=== PATIENT | female | born 1955 | race Caucasian/White ===

== ENCOUNTER 2019-03-13 13:51 | Emergency (ER) | payer MEDICARE ==
[2014-05-28 09:57] VITALS: Wt 104.3 kg
[~2019-03-13 13:51] MED LIST: ALBU8.5H IH; AMOX-362 PO; AZIT-18 PO; AZIT-9 PO; BENZ200C15 PO; CITA-128 PO; CLIN-60 PO; FEXO-20 PO; HYDR115S3 PO; MULT-1379 PO; PRE20 PO; PRED20TA6 PO; VENL75CA4 PO; VENL75TA12 PO; [UNRECOGNIZED DRUG - CODE] PO
--- NOTE | 2019-03-13 13:57 | ER Report ---
History and Physical Time Seen By MD: 13:57 HPI/ROS CHIEF COMPLAINT: Burning with urination HISTORY OF PRESENT ILLNESS: Patient is a 63-year-old female here with complaints of burning with urination, increased frequency, right-sided flank pain with CVA tenderness. Patient is concerned that she has pyelonephritis. Patient is tolerating oral intake without issues, is afebrile, hemodynamically stable at time of evaluation. Denies hematuria, melena. REVIEW OF SYSTEMS: Constitutional: No fever, no chills. Eyes: No discharge. ENT: No sore throat. Cardiovascular: No chest pain, no palpitations. Respiratory: No cough, no shortness of breath. Gastrointestinal: + Right sided abdominal pain, no vomiting.+ nausea Genitourinary: No hematuria.+ Burning with urination, increased frequency Musculoskeletal: No back pain. Skin: No rashes. Neurological: No headache. Allergies: Coded Allergies: clindamycin (Verified Allergy, Intermediate, SWELLING, 03/13/19) aripiprazole (Verified Adverse Reaction, Intermediate, tongue swelled, 03/13/19) Home Meds Active Scripts Ciprofloxacin Hcl 500 Mg Tab (CIPRO 500 MG TAB) 500 Mg Tablet, 500 MG PO BID for 7 Days, #14 TAB Prov:HARPREET SANTOS S DO 03/13/19 Albuterol Sulfate 90 Mcg/Act (PROAIR HFA 90 MCG/ACT) 8.5 Gm Hfa.aer.ad, 1-2 PUFF IH 3-4XD, #1 INHALER 0 Refills Prov:RAPHAEL ARELLANO [employer] 09/30/18 Reported Medications Lamotrigine (LAMICTAL) 25 Mg Tablet, 25 MG PO 03/13/19 Multivits,Th W-Fe,Other Min (THERA-M) 1 Each Tablet, 1 EACH PO 05/30/14 Citalopram Hydrobromide (Citalopram Hbr) 20 Mg Tablet, 40 MG PO DAILY 12/19/12 Discontinued Reported Medications Venlafaxine Hcl (VENLAFAXINE HCL ER) 75 Mg Cap.er.24h, 75 MG PO QDAY 05/30/14 Fexofenadine Hcl (FEXOFENADINE HCL) 60 Mg Tablet, 60 MG PO DAILY 05/30/14 Discontinued Scripts Benzonatate (BENZONATATE) 200 Mg Capsule, 200 MG PO TID PRN for COUGH, #15 CAP Prov:RAPHAEL ARELLANO [facility] 09/30/18 Azithromycin 250 Mg Tab (AZITHROMYCIN 250 MG TAB) 250 Mg Tablet, 1 TAB PO QDAY, #6 TAB Take 2 tabs today and then 1 tab a day until gone. Prov:RAPHAEL ARELLANO [facility] 09/30/18 Prednisone (PREDNISONE) 20 Mg Tablet, 20 MG PO BID, #10 TAB Prov:RAPHAEL ARELLANO [facility] 09/30/18 Hx Smoking: Yes Smoking Status: Never Smoker Exposure to Second Hand Smoke?: No Hx Substance Use Disorder: No Hx Alcohol Use: Yes Constitutional Vital Sign - Last 24 Hours 03/13/19 14:01 Temp 98.0 Pulse 77 Resp 16 B/P (MAP) 125/88 Pulse Ox 94 O2 Delivery Room Air Physical Exam General Appearance: The patient is alert, has no immediate need for airway protection and no signs of toxicity. Uncomfortable appearing Eyes: Pupils equal and round no pallor or injection. ENT, Mouth: Mucous membranes are moist. Respiratory: There are no retractions, lungs are clear to auscultation. Cardiovascular: Regular rate and rhythm. Gastrointestinal: Tenderness on palpation of the right inguinal region, CVA tenderness on the right side Neurological: No focal neurological findings Skin: Warm and dry, no rashes. Musculoskeletal: Neck is supple non tender. Extremities are nontender, nonswollen and have full range of motion. DIFFERENTIAL DIAGNOSIS: After history and physical exam differential diagnosis was considered for abdominal pain including but not limited to appendicitis, cholecystitis, gastritis and urinary tract infection. Medical Decision Making Data Points Result Diagram: 03/13/19 1519 03/13/19 1519 Laboratory Hematology Test 03/13/19 13:58 03/13/19 15:19 Urine Color Pale yellow Urine Clarity Cloudy Urine pH 6.0 pH (4.8-9.5) Urine Specific [place] 1.010 Urine Protein Negative mg/dL (NEGATIVE) Urine Glucose (UA) Negative mg/dL (NEGATIVE) Urine Ketones Negative mg/dL (NEGATIVE) Urine Blood Small (NEGATIVE) Urine Nitrite Negative (NEGATIVE) Urine Bilirubin Negative (NEGATIVE) Urine Urobilinogen 0.2 mg/dL (0.2-1.9) Urine Leukocyte Esterase Large (NEGATIVE) Urine RBC 5-8 /HPF (0-2/HPF) Urine WBC 70-75 /HPF (0-5/HPF) Urine WBC Clumps Few /HPF Urine Squamous Epithelial Cells Few /LPF (</=FEW) Urine Bacteria Few /HPF (NONE-FEW) Urine Mucus None /HPF (NONE-FEW) Red Blood Count 5.04 M/uL (4.17-5.56) Mean Corpuscular Volume 89.5 fL (80.0-96.0) Mean Corpuscular Hemoglobin 30.5 pg (26.0-33.0) Mean Corpuscular Hemoglobin Concent 34.1 g/dL (32.0-36.0) Red Cell Distribution Width 13.4 % (11.5-14.5) Mean Platelet Volume 8.4 fL (7.2-11.1) Neutrophils (%) (Auto) 51.9 % (39.4-72.5) Lymphocytes (%) (Auto) 36.6 % (17.6-49.6) Monocytes (%) (Auto) 8.5 % (4.1-12.4) Eosinophils (%) (Auto) 2.0 % (0.4-6.7) Basophils (%) (Auto) 1.0 % (0.3-1.4) Nucleated RBC Relative Count (auto) 0.1 /100WBC Neutrophils # (Auto) 2.7 K/uL (2.0-7.4) Lymphocytes # (Auto) 1.9 K/uL (1.3-3.6) Monocytes # (Auto) 0.4 K/uL (0.3-1.0) Eosinophils # (Auto) 0.1 K/uL (0.0-0.5) Basophils # (Auto) 0.1 K/uL (0.0-0.1) Nucleated RBC Absolute Count (auto) 0.00 K/uL Sodium Level 140 mmol/L (137-145) Potassium Level 4.7 mmol/L (3.5-5.0) Chloride Level 106 mmol/L (98-107) Carbon Dioxide Level 28 mmol/L (22-31) Blood Urea Nitrogen 15 mg/dl (7-18) Creatinine 0.80 mg/dl (0.52-1.04) Glomerular Filtration Rate Calc > 60.0 Random Glucose 94 mg/dl (75-110) Calcium Level 8.7 mg/dl (8.4-10.2) Total Bilirubin 0.6 mg/dl (0.2-1.3) Aspartate Amino Transf (AST/SGOT) 23 U/L (0-35) Alanine Aminotransferase (ALT/SGPT) 41 U/L (0-56) Alkaline Phosphatase 59 U/L (0-126) Total Protein 6.2 g/dl (6.3-8.2) Albumin 3.5 g/dl (3.5-5.0) Lipase 44 U/L (23-300) Chemistry Test 03/13/19 13:58 03/13/19 15:19 Urine Color Pale yellow Urine Clarity Cloudy Urine pH 6.0 pH (4.8-9.5) Urine Specific [place] 1.010 Urine Protein Negative mg/dL (NEGATIVE) Urine Glucose (UA) Negative mg/dL (NEGATIVE) Urine Ketones Negative mg/dL (NEGATIVE) Urine Blood Small (NEGATIVE) Urine Nitrite Negative (NEGATIVE) Urine Bilirubin Negative (NEGATIVE) Urine Urobilinogen 0.2 mg/dL (0.2-1.9) Urine Leukocyte Esterase Large (NEGATIVE) Urine RBC 5-8 /HPF (0-2/HPF) Urine WBC 70-75 /HPF (0-5/HPF) Urine WBC Clumps Few /HPF Urine Squamous Epithelial Cells Few /LPF (</=FEW) Urine Bacteria Few /HPF (NONE-FEW) Urine Mucus None /HPF (NONE-FEW) White Blood Count 5.2 k/uL (4.5-11.0) Red Blood Count 5.04 M/uL (4.17-5.56) Hemoglobin 15.4 g/dL (12.0-16.0) Hematocrit 45.1 % (34.0-47.0) Mean Corpuscular Volume 89.5 fL (80.0-96.0) Mean Corpuscular Hemoglobin 30.5 pg (26.0-33.0) Mean Corpuscular Hemoglobin Concent 34.1 g/dL (32.0-36.0) Red Cell Distribution Width 13.4 % (11.5-14.5) Platelet Count 204 K/uL (150-450) Mean Platelet Volume 8.4 fL (7.2-11.1) Neutrophils (%) (Auto) 51.9 % (39.4-72.5) Lymphocytes (%) (Auto) 36.6 % (17.6-49.6) Monocytes (%) (Auto) 8.5 % (4.1-12.4) Eosinophils (%) (Auto) 2.0 % (0.4-6.7) Basophils (%) (Auto) 1.0 % (0.3-1.4) Nucleated RBC Relative Count (auto) 0.1 /100WBC Neutrophils # (Auto) 2.7 K/uL (2.0-7.4) Lymphocytes # (Auto) 1.9 K/uL (1.3-3.6) Monocytes # (Auto) 0.4 K/uL (0.3-1.0) Eosinophils # (Auto) 0.1 K/uL (0.0-0.5) Basophils # (Auto) 0.1 K/uL (0.0-0.1) Nucleated RBC Absolute Count (auto) 0.00 K/uL Glomerular Filtration Rate Calc > 60.0 Calcium Level 8.7 mg/dl (8.4-10.2) Total Bilirubin 0.6 mg/dl (0.2-1.3) Aspartate Amino Transf (AST/SGOT) 23 U/L (0-35) Alanine Aminotransferase (ALT/SGPT) 41 U/L (0-56) Alkaline Phosphatase 59 U/L (0-126) Total Protein 6.2 g/dl (6.3-8.2) Albumin 3.5 g/dl (3.5-5.0) Lipase 44 U/L (23-300) Urinalysis Test 03/13/19 13:58 Urine Color Pale yellow Urine Clarity Cloudy Urine pH 6.0 pH (4.8-9.5) Urine Specific [place] 1.010 Urine Protein Negative mg/dL (NEGATIVE) Urine Glucose (UA) Negative mg/dL (NEGATIVE) Urine Ketones Negative mg/dL (NEGATIVE) Urine Blood Small (NEGATIVE) Urine Nitrite Negative (NEGATIVE) Urine Bilirubin Negative (NEGATIVE) Urine Urobilinogen 0.2 mg/dL (0.2-1.9) Urine Leukocyte Esterase Large (NEGATIVE) Urine RBC 5-8 /HPF (0-2/HPF) Urine WBC 70-75 /HPF (0-5/HPF) Urine WBC Clumps Few /HPF Urine Squamous Epithelial Cells Few /LPF (</=FEW) Urine Bacteria Few /HPF (NONE-FEW) Urine Mucus None /HPF (NONE-FEW) ED Course/Re-evaluation ED Course Patient is a 63-year-old female here with complaints of burning with urination, increased frequency, right-sided flank pain with CVA tenderness. Patient is afebrile, hemodynamically stable at time of evaluation. Urinalysis was consistent with infectious etiology. Patient with blood cell count was normal, kidney function was stable. Patient was given ceftriaxone, normal saline bolus. Prescription provided for Cipro 7 day course due to concern for pyelonephritis. Return precautions provided. PCP follow-up recommended. Decision to Disposition Date: Mar 13, 2019 Decision to Disposition Time: 15:59 Depart Departure Latest Vital Signs Vital Signs Date Time Temp Pulse Resp B/P (MAP) Pulse Ox O2 Delivery O2 Flow Rate FiO2 03/13/19 14:01 98.0 77 16 125/88 94 Room Air Core Temperature (Celsius): 36.56 Impression: Primary Impression: Pyelonephritis Condition: Improved Disposition: HOME OR SELF-CARE New Scripts Ciprofloxacin Hcl 500 Mg Tab (CIPRO 500 MG TAB) 500 Mg Tablet 500 MG PO BID for 7 Days, #14 TAB Prov: HARPREET SANTOS DO 03/13/19 Patient Instructions: Kidney Infection (ED) Additional Instructions: Please drink plenty water. Please take Cipro 500 mg twice daily for 7 days. Please return promptly if you develop fevers, chills, abdominal pain, nausea, vomiting. Please follow-up with your family doctor in the next 24-48 hours. HARPREET SANTOS DO Mar 13, 2019 13:57
[2019-03-13] MEDS ORDERED: LAMO25TA64 PO (14:10)
[2019-03-13] MEDS ORDERED: KETOROLAC 30 MG/ML VIAL IVP ONE (14:20)
[2019-03-13] MEDS ORDERED: NS(*) 0.9% 1000 ML BAG 1,000 ML IV ONE (14:20)
[2019-03-13] MEDS ORDERED: cefTRIAXone 1 GM VIAL IVP ONE (14:50)
[2019-03-13] MEDS ORDERED: PHENAZOPYRIDINE 200 MG TAB PO ONE (14:55)
[2019-03-13 15:31] LABS: PLATELET COUNT, AUTOMATED 204 K/uL (150-450)
[2019-03-13 15:37] VITALS: BP 138/86
[2019-03-13] MEDS ORDERED: CIPR-344 PO (15:56)
== END 2019-03-13 16:10 | disposition home or self-care (01) ==
LOC: ER 14:00
DX: N12 Tubulo-interstitial nephritis, not specified as acute or chronic (principal)
CPT/HCPCS: 36415; 81001; 83690; 85025; 87077; 87088; 87186; 96361; 96374; 96375; 99284; A9270; J0696; J1885; J7030; 82040; 82247; 82310; 82374; 82435; 82565; 82947; 84075; 84132; 84155; 84295; 84450; 84460; 84520